=== PATIENT | male | born 1970 | race Caucasian/White ===

== ENCOUNTER → 2023-10-13 | Outpatient (REF) | payer BC, SELFPAY | LOC: DHSLP | PROVIDERS: ATTENDING PHYSICIAN Internal Medicine; FAMILY PHYSICIAN Nurse Practitioner | DX: G47.33 Obstructive sleep apnea (adult) (pediatric) (principal) | CPT/HCPCS: 95800 ==

== ENCOUNTER → 2024-06-12 14:03 | Outpatient (REF) | payer BC, SELFPAY | LOC: HWRAD 14:03 | PROVIDERS: ATTENDING PHYSICIAN Nurse Practitioner; FAMILY PHYSICIAN Nurse Practitioner | DX: R10.11 Right upper quadrant pain (principal) | CPT/HCPCS: 76700 ==